=== PATIENT | male | born 1975 | race Caucasian/White ===

== ENCOUNTER → 2022-06-25 | Outpatient (CLI) | payer OTHER ==
[2022-06-25 20:09] LABS: CHOL/HDL RATIO 3.1; Cholesterol 207 mg/dL (50-200); HDL Cholesterol 66 mg/dL (>39); LDL/HDL RATIO 1.8; Low Density Lipoprotein Chol 116 mg/dL (0-110); Thyroid Stimulating Hormone 0.062 uIU/mL (0.360-4.800); Triglycerides 123 mg/dL (30-160); Very Low Density Lipoprot Chol 24 mg/dL (6-32)
== END | disposition home or self-care (01) ==
LOC: LAB 15:18 → LAB SHORT 15:18
PROVIDERS: Student in an Organized Health Care Education/Training Program
DX: E03.9 Hypothyroidism, unspecified (principal)
CPT/HCPCS: 80061; 84443

== ENCOUNTER 2024-07-15 08:32 | Day surgery (SDC) | payer OTHER ==
[2024-07-15] VITALS (12 sets, daily range): BP systolic 95–127; BP diastolic 70–83
[~2024-07-15] VITALS: Ht 180.3 cm; Wt 91.3 kg
[~2024-07-15 08:32] MED LIST: LEVOTHYROXINE200 MCG PO; Lactated Ringer's 1,000 ML IV SCH
--- NOTE | 2024-07-15 09:17 | NUR ---
Ambulatory in Day Surgery Patient confirms NPO status and agrees with scheduled surgery. Pre-Op teaching done. Pt verbalizes understanding. History, Chart, Medications and Allergies reviewed before start of procedure.Patient States Post-Procedure ride home has been arranged.
[2024-07-15] MEDS ORDERED: propofoL 20 ML IV ONE (09:58)
[2024-07-15] MEDS ORDERED: Midazolam HCl 1MG / ML 2ML Vial ONE (09:59)
--- NOTE | 2024-07-15 10:10 | NUR ---
07/15/24 Jessica Ball CONFIRMED AND REVIEWED H&P, MEDCICATIONS, ALLERGIES, MEDICAL HISTORY, RESPIRATORY HISTORY, VITAL SIGNS, 3-LEAD EKG, CONSENTS, AND PHYSICIAN ORDERS. PATIENT CONFIRMS NPO STATUS AND AGREES WITH SCHEDULED PROCEDURE. MONITOR INTACT WITH CONTINUOUS PULSE OXIMETRY, CAPNOGRAPHY, 3-LEAD EKG, INTERMITTENT BP. SUPPLEMENTAL O2 TO BE TITRATED THROUGHOUT PROCEDURE TO MAINTAIN O2 SATURATION ABOVE 90%. PATIENT DETERMINED TO BE ASA APPROPRIATE FOR PROPOFOL SEDATION PRIOR TO START OF PROCEDURE BY DR. KRAUS.
--- NOTE | 2024-07-15 10:31 | NUR ---
REPORT RECEIVED FROM ALANIS WING. VSS. PT ON RA. PT ABLE TO REPOSITION SELF IN BED. PT REQUESTING PO FLUIDS AND TOLERATING THEM WELL. PT DENIES PAIN, NAUSEA OR OTHER DISCOMFORTS.
== END 2024-07-15 10:53 | disposition home or self-care (01) ==
LOC: ORSCMMR 08:32 → ORD 09:00 → ORSCMMR 10:30 → ORD 07-16 09:00
PROVIDERS: Internal Medicine Gastroenterology
PROC: 0DJD8ZZ Inspection of Lower Intestinal Tract, Via Natural or Artificial Opening Endoscopic (ICD-10-PCS; principal; 2024-07-15 10:30)
DX: K62.5 Hemorrhage of anus and rectum (principal); E03.9 Hypothyroidism, unspecified; Z85.038 Personal history of other malignant neoplasm of large intestine
CPT/HCPCS: J2250; J2704; J7120